=== PATIENT | male | born 1985 | race Caucasian/White ===

== ENCOUNTER 2016-07-30 17:04 | Emergency (ER) | payer MEDICAID ==
[~2016-07-30] VITALS: Ht 190.5 cm; Wt 83.9 kg
[2016-07-30 17:04] VITALS: BP_SYST 110
--- NOTE | 2016-07-30 17:04 | NUR ---
Placed on quality assurance monitor final, blood pressure machine and pulse oximeter. To gown for exam. Side rails up.
--- NOTE | 2016-07-30 17:04 | NUR ---
BIB ALS,per pt's mom,he had witness tonic clonic seizure last 5 mins became post ictal and combative. upon arrival to ED, pt awake,alert, oriented x4. cooperative.,no apparent distress noted.
--- NOTE | 2016-07-30 17:04 | NUR ---
Seizure precautions in place. Seizure pads applied to gurney. Side rails up.
--- NOTE | 2016-07-30 17:04 | NUR ---
Seizure precautions in place. Seizure pads applied to gurney. Side rails up.
--- NOTE | 2016-07-30 17:04 | NUR ---
Patient to ER bed 1 to gown for evaluation. Side rails up. Report given to TALIA FLANAGAN.
--- NOTE | 2016-07-30 17:09 | NUR ---
ER at bedside examining patient.
[2016-07-30] MEDS ORDERED: NACL 0.9% 1,000 ML IV ONE ×3 (17:15→18:00)
[2016-07-30] MEDS ORDERED: LORazepam 2 MG/ML VIAL (FOR ER USE) IVP ONE (17:15)
--- NOTE | 2016-07-30 17:21 | NUR ---
# 20 gauge angiocath placed to left hand . Use of asceptic technique. Opsite placed over site. Blood return noted. Blood for lab drawn from site. Flushed with 10 cc of normal saline. No evidence of infiltration noted. Patient tolerated well.
[2016-07-30 17:22] LABS: BASOPHILS # (AUTO) 0.1 K/uL (0.0-0.2); EOSINOPHILS # (AUTO) 0.4 K/uL (0.0-0.4); EOSINOPHILS % (AUTO) 3.5 % (0.0-4.0); HEMATOCRIT 40.2 % (36-54); HEMOGLOBIN 13.3 g/dL (14.0-18.0); LYMPHOCYTES # (AUTO) 2.4 K/uL (1.0-5.5); LYMPHOCYTES % (AUTO) 21.5 % (20.5-51.5); MEAN CORPUSCULAR HEMOGLOBIN 31 pg (27-31); MEAN CORPUSCULAR HGB CONC 33 % (32-36); MEAN CORPUSCULAR VOLUME 94 fL (79.0-98.0); MONOCYTES # (AUTO) 1.1 K/uL (0.0-1.0); MONOCYTES % (AUTO) 10.3 % (1.7-9.3); NEUTROPHILS # (AUTO) 7.2 K/uL (1.8-7.7); NEUTROPHILS % (AUTO) 63.7 % (40.0-70.0); PLATELET COUNT (AUTO) 330 K/uL (130-430); RED BLOOD CELL COUNT(AUTO) 4.29 MIL/uL (4.2-6.2); RED CELL DISTRIBUTION WIDTH 13.1 % (9.0-15.0); WHITE BLOOD COUNT (AUTO) 11.2 K/uL (4.8-10.8)
[2016-07-30] MEDS ORDERED: HYDROcodone/ACETAMIN 5-325 MG TAB (NORCO/ VICODIN) PO ONE ×2 (17:30→18:30)
[2016-07-30 17:39] LABS: ANION GAP 12 (5-15); CALCIUM 9.6 mg/dL (8.4-11.0); CHLORIDE 103 mmol/L (98-107); CREATININE 1.27 mg/dL (0.55-1.30); GLUCOSE 94 mg/dL (70-99); POTASSIUM 3.4 mmol/L (3.5-5.1); SODIUM SERUM 139 mmol/L (136-145); UREA NITROGEN, BLOOD 13 mg/dL (8-21)
[2016-07-30 17:42] LABS: GFR AFRICAN AMERICAN 85 mL/min (>90)
[2016-07-30 17:52] LABS: ALANINE AMINOTRANSFERASE 40 U/L (12-78); ALBUMIN 4.2 g/dL (3.4-4.8); ASPARTATE AMINOTRANSFERASE 16 U/L (10-37); TOTAL BILIRUBIN 0.3 mg/dL (0.0-1.0); TOTAL PROTEIN, SERUM 7.5 g/dL (6.4-8.3)
[2016-07-30 17:56] LABS: PHENYTOIN (DILANTIN) < 0.5 ug/mL (10.0-20.0)
[2016-07-30] MEDS ORDERED: cefTRIAXone 1 GM IVPB PREMIX 50 ML IV ONE (18:00)
--- NOTE | 2016-07-30 19:12 | NUR ---
hand off to Jean Paul MELGAR
--- NOTE | 2016-07-30 19:15 | NUR ---
Pt is resting comfortably in bed. VSS. AAOX4. Will continue to monitor via float phlebotomist. No distress noted.
[2016-07-30 19:54] LABS: BARBITURATE, URINE NEGATIVE (NEG <=200); BENZODIAZEPINE, URINE NEGATIVE (NEG <=150); CANNABINOID, URINE POSITIVE (NEG <=50); COCAINE, URINE NEGATIVE (NEG <=150); METHAMPHETAMINES SCREEN,URINE NEGATIVE (NEG <=500); OPIATE, URINE POSITIVE (NEG <=100); PHENCYCLIDINE SCREEN,URINE NEGATIVE (NEG <=25); UR TRICYCLIC ANTIDEPRESSANTS NEGATIVE (NEG <=300); URINE AMPHETAMINE NEGATIVE (NEG <=500); URINE METHADONE NEGATIVE (NEG <=200); URINE OXYCODONE SCREEN NEGATIVE (NEG <=100); URINE PROPOXYPHENE SCREEN NEGATIVE (NEG <=300)
[2016-07-30 20:01] VITALS: BP_SYST 129
--- NOTE | 2016-07-30 20:01 | NUR ---
Patient given written and verbal discharge instructions and verbalizes understanding. ER MD discussed with patient the results and treatment provided. Given copies of tests performed in ER. Patient in stable condition. ID arm band removed. IV catheter removed intact and dressing applied, no active bleeding. Patient educated on pain management and to follow up with PMD. Pain Scale 0/10. Opportunity for questions provided and answered.
== END 2016-07-30 20:01 | disposition home or self-care (01) ==
LOC: SED 17:04
DX: R56.9 Unspecified convulsions (principal); E87.2 Acidosis
CPT/HCPCS: 36415; 80053; 80185; 80307; 83605; 83735; 85025; 87040; 93005; 96360; 96361; 96365; 96375; 99285; J0696; J2060; J7030

== ENCOUNTER 2016-07-31 10:06 | Emergency (ER) | payer MEDICAID ==
[~2016-07-31] VITALS: Ht 193 cm; Wt 83.9 kg
[2016-07-31 10:09] VITALS: BP 149/83; PULSE 83; RESP 16; TEMP 97.9; O2SAT 98
--- NOTE | 2016-07-31 10:10 | NUR ---
Pt placed to ER bed 08. Pt seen yesterday for seizure. Pt here with c/o headache and Left hip pain and wants RX for pain medication. No seizure activity noted, no focal neurodeficits noted.
[2016-07-31] MEDS ORDERED: HYDROcodone/ACETAMIN 10-325 MG TAB PO ONE (10:15)
--- NOTE | 2016-07-31 10:15 | NUR ---
Dr. Suh at bedside to assess pt.
[2016-07-31 11:25] VITALS: BP 127/81; PULSE 78; RESP 15; TEMP 98.4; O2SAT 99
--- NOTE | 2016-07-31 11:25 | NUR ---
Patient given written and verbal discharge instructions and verbalizes understanding. ER MD dr. mario discussed with patient the results and treatment provided. Patient in stable condition. ID arm band removed. no Rx given. Patient educated on pain management and to follow up with PMD. Pain Scale 3/10 states he still needs his pain medication once his mother comes here to get him, pt. waiting in the waiting area, will be given narcotic once mother is here to product picker the pt. Opportunity for questions provided and answered.
--- NOTE | 2016-07-31 11:33 | NUR ---
Patient's mother is at bedside. Patient will be medicated and discharged at this time.
--- NOTE | 2016-07-31 11:35 | NUR ---
MOTHER AT CHAIRSIDE. PT. WAS GIVEN NORCO 1 TAB, PT. LEFT ACCOMPANIED BY HIS MOTHER
== END 2016-07-31 11:25 | disposition home or self-care (01) ==
LOC: SED 10:06
DX: G89.4 Chronic pain syndrome (principal); G40.909 Epilepsy, unspecified, not intractable, without status epilepticus
CPT/HCPCS: 99282

== ENCOUNTER 2016-08-30 10:57 | Emergency (ER) | payer MEDICAID ==
[~2016-08-30] VITALS: Ht 188 cm; Wt 77.1 kg
[2016-08-30 10:57] VITALS: BP 130/110; PULSE 77; RESP 19; TEMP 97.3; O2SAT 99
--- NOTE | 2016-08-30 11:00 | NUR ---
BROUGHT BACK TO BED #1 AND TRIAGED. REPORT GIVEN TO BEBO
--- NOTE | 2016-08-30 11:07 | NUR ---
DR SOTO AT BEDSIDE FOR EVALUATION
--- NOTE | 2016-08-30 11:10 | NUR ---
Pt presents to ED c/o numbness to part of L palm and bilateral feet with of Seizure. No acute distress noted at this time.
[2016-08-30] MEDS ORDERED: IBUPROFEN 600 MG TABLET PO ONE (11:15)
[2016-08-30 11:24] LABS: BASOPHILS # (AUTO) 0.1 K/uL (0.0-0.2); BASOPHILS % (AUTO) 1.2 % (0.0-2.0); EOSINOPHILS # (AUTO) 0.4 K/uL (0.0-0.4); HEMATOCRIT 40.6 % (36-54); HEMOGLOBIN 13.7 g/dL (14.0-18.0); LYMPHOCYTES # (AUTO) 2.9 K/uL (1.0-5.5); LYMPHOCYTES % (AUTO) 32.3 % (20.5-51.5); MEAN CORPUSCULAR HEMOGLOBIN 31 pg (27-31); MEAN CORPUSCULAR HGB CONC 34 % (32-36); MEAN CORPUSCULAR VOLUME 93 fL (79.0-98.0); MONOCYTES # (AUTO) 0.9 K/uL (0.0-1.0); MONOCYTES % (AUTO) 10.4 % (1.7-9.3); NEUTROPHILS # (AUTO) 4.6 K/uL (1.8-7.7); NEUTROPHILS % (AUTO) 52.1 % (40.0-70.0); PLATELET COUNT (AUTO) 340 K/uL (130-430); RED BLOOD CELL COUNT(AUTO) 4.37 MIL/uL (4.2-6.2); RED CELL DISTRIBUTION WIDTH 12.9 % (9.0-15.0); WHITE BLOOD COUNT (AUTO) 8.9 K/uL (4.8-10.8)
--- NOTE | 2016-08-30 11:30 | NUR ---
Pt medicated tolerated well.
[2016-08-30 11:33] LABS: CALCIUM 9.5 mg/dL (8.4-11.0); CREATININE 0.98 mg/dL (0.55-1.30); POTASSIUM 4.5 mmol/L (3.5-5.1)
[2016-08-30 11:59] LABS: PROTHROMBIN TIME 10.5 SECS (9.5-12.5)
[2016-08-30 12:56] VITALS: BP 128/90; PULSE 78; RESP 20; TEMP 97.3; O2SAT 99
--- NOTE | 2016-08-30 12:56 | NUR ---
Patient given written and verbal discharge instructions and verbalizes understanding. ER MD discussed with patient the results and treatment provided. Given copies of tests performed in ER. Patient in stable condition. ID arm band removed. Rx of motrin given. Patient educated on pain management and to follow up with PMD. Pain Scale 2. Opportunity for questions provided and answered.
== END 2016-08-30 12:56 | disposition home or self-care (01) ==
LOC: SED 10:57
DX: M54.12 Radiculopathy, cervical region (principal)
CPT/HCPCS: 36415; 70450-TC; 72125-TC; 80048; 85025; 85610-TC; 85730-TC; 99285

== ENCOUNTER 2016-09-25 12:02 | Emergency (ER) | payer MEDICAID ==
[~2016-09-25] VITALS: Ht 193 cm; Wt 76.2 kg
[2016-09-25 12:13] VITALS: BP 144/100; PULSE 111; RESP 16; TEMP 98.6; O2SAT 100
--- NOTE | 2016-09-25 13:25 | NUR ---
Patient to ER bed 1 to gown for evaluation. Side rails up. Assumed care of pt.
--- NOTE | 2016-09-25 13:27 | NUR ---
Patient C/O bilat wrist, hand pain and numbness. States that he has been evaluated for this before and wants pain medication to get him through until he is able to follow with primary care. Patient has bilateral wrist abrasions which are dark red without surrounding redness.
--- NOTE | 2016-09-25 13:30 | NUR ---
ER Dr. Suh at bedside examining patient.
[2016-09-25] MEDS ORDERED: NACL 0.9% 1,000 ML IV ONE (13:45)
[2016-09-25] MEDS ORDERED: ONDANSETRON HCL 4 MG/2 ML VIAL IVP ONE (13:45)
[2016-09-25] MEDS ORDERED: DEXAMETHASONE SOD PHOSPHATE 10 MG/ML VIAL IVP ONE (13:45)
[2016-09-25] MEDS ORDERED: KETOROLAC TROMETHAMINE 30 MG VIAL IVP ONE (13:45)
[2016-09-25 15:05] VITALS: BP 126/76; PULSE 88; RESP 20; TEMP 97.6; O2SAT 97
--- NOTE | 2016-09-25 15:06 | NUR ---
Patient given written and verbal discharge instructions and verbalizes understanding. ER MD discussed with patient the results and treatment provided. Patient in stable condition. ID arm band removed. IV catheter removed intact and dressing applied, no active bleeding. Rx of Zofran 8 mg given. Patient educated on pain management and to follow up with PMD. Pain Scale 2/10, tolerable. Opportunity for questions provided and answered.
== END 2016-09-25 15:05 | disposition home or self-care (01) ==
LOC: SED 12:02
DX: M25.532 Pain in left wrist (principal); M25.531 Pain in right wrist; R11.0 Nausea
CPT/HCPCS: 73110; 96361; 96374; 96375; 99284; J1100; J1885; J2405; J7030

== ENCOUNTER 2016-10-06 15:00 | Emergency (ER) | payer MEDICAID ==
[~2016-10-06] VITALS: Ht 190.5 cm; Wt 83.9 kg
[2016-10-06 15:08] VITALS: BP_SYST 129
[2016-10-06] MEDS ORDERED: ACETAMINOPHEN 500 MG TABLET PO ONE (16:00)
[2016-10-06] MEDS ORDERED: BACITRACIN 1 GM OINT TP ONE (16:00)
[2016-10-06 16:15] VITALS: BP_SYST 121
== END 2016-10-06 16:15 | disposition home or self-care (01) ==
LOC: SED 15:00
DX: S90.812A Abrasion, left foot, initial encounter (principal); S90.811A Abrasion, right foot, initial encounter; S60.812A Abrasion of left wrist, initial encounter; S60.811A Abrasion of right wrist, initial encounter; S00.91XA Abrasion of unspecified part of head, initial encounter; X58.XXXA Exposure to other specified factors, initial encounter; Y93.89 Activity, other specified; Y92.89 Other specified places as the place of occurrence of the external cause; Y99.8 Other external cause status
CPT/HCPCS: 99283

== ENCOUNTER 2016-10-09 08:26 | Inpatient (IN) | payer MEDICAID ==
[~2016-10-09] VITALS: Ht 193 cm; Wt 83.5 kg
[2016-10-09] VITALS (8 sets, daily range): BP systolic 100–134; BP diastolic 60–76; PULSE 75–99; RESP 11–21; TEMP 98.5–99.4; O2SAT 94–99
[2016-10-09] MEDS ORDERED: LORazepam 2 MG/ML VIAL (FOR ER USE) IVP ONE ×2 (08:30→08:45)
--- NOTE | 2016-10-09 08:30 | NUR ---
Pt BIB [facility], placed to ER bed 02, seizure precautions in place, pt on monitor. Pt experienced an unwitnessed seizure, found by family member wandering around in kitchen this AM. Pt ambulatory on scene. Pt currently AAOx4, no respiratory distress, no oral trauma. Pt has scabs to bilat feet from previous seizure. Pt report given to TALIA Arrieta.
--- NOTE | 2016-10-09 08:32 | NUR ---
Dr. Suh at bedside to assess pt.
--- NOTE | 2016-10-09 08:35 | NUR ---
Pt experiencing tonic-clonic seizure. Dr. Suh aware, Ativan to be administered.
--- NOTE | 2016-10-09 08:45 | NUR ---
Pt thrashing about in bed, pulling off medical equiptment. Soft wrist restraints applied to Bilat wrists. Good cap refill to fingers.
[2016-10-09 08:51] LABS: BASOPHILS # (AUTO) 0.2 K/uL (0.0-0.2); BASOPHILS % (AUTO) 0.9 % (0.0-2.0); EOSINOPHILS # (AUTO) 0.8 K/uL (0.0-0.4); EOSINOPHILS % (AUTO) 4.7 % (0.0-4.0); HEMATOCRIT 42.7 % (36-54); HEMOGLOBIN 13.7 g/dL (14.0-18.0); LYMPHOCYTES # (AUTO) 6.4 K/uL (1.0-5.5); MEAN CORPUSCULAR HEMOGLOBIN 31 pg (27-31); MEAN CORPUSCULAR HGB CONC 32 % (32-36); MEAN CORPUSCULAR VOLUME 96 fL (79.0-98.0); MONOCYTES # (AUTO) 1.9 K/uL (0.0-1.0); NEUTROPHILS # (AUTO) 8.1 K/uL (1.8-7.7); PLATELET COUNT (AUTO) 509 K/uL (130-430); RED BLOOD CELL COUNT(AUTO) 4.46 MIL/uL (4.2-6.2); RED CELL DISTRIBUTION WIDTH 13.1 % (9.0-15.0); WHITE BLOOD COUNT (AUTO) 17.4 K/uL (4.8-10.8)
[2016-10-09 08:57] LABS: CALCIUM 9.6 mg/dL (8.4-11.0); CREATININE 1.33 mg/dL (0.55-1.30); POTASSIUM 3.4 mmol/L (3.5-5.1)
[2016-10-09] MEDS ORDERED: KETAMINE HCL 500 MG/10 ML VIAL IVP ONE ×4 (09:00→09:15)
[2016-10-09 09:02] LABS: ALBUMIN 4.3 g/dL (3.4-4.8); TOTAL BILIRUBIN 0.4 mg/dL (0.0-1.0); TOTAL PROTEIN, SERUM 7.9 g/dL (6.4-8.3)
[2016-10-09 09:20] LABS: BILIRUBIN,URINE NEGATIVE (NEGATIVE); BLOOD, URINE 2+ (NEGATIVE); CLARITY/URINE CLEAR (CLEAR); COLOR,URINE YELLOW (YELLOW); GLUCOSE,URINE NEGATIVE (NEGATIVE); KETONES,URINE NEGATIVE (NEGATIVE); LEUKOCYTE ESTERASE ,URINE NEGATIVE (NEGATIVE); NITRITE, URINE NEGATIVE (NEGATIVE); PROTEIN URINE TRACE (NEGATIVE); UROBILINOGEN,URINE 0.2 (0.2-1.0)
--- NOTE | 2016-10-09 09:32 | NUR ---
Kristen rollins in [facility] - 10/09/16 at 1040 by KATHRINE PATIENT IS LETHARGIC;STABLE VITAL SIGNS
--- NOTE | 2016-10-09 09:32 | NUR ---
PATIENT ASLEEP;BREATHING EVEN AND UNLABORED.NO ACUTE DISTRESS.VITAL SIGNS STABLE.WILL CONTINUE TO MONITOR
[2016-10-09 09:38] LABS: BACTERIA,URINE FEW /HPF (None Seen); MUCUS,URINE 1+ /LPF (None Seen); RBC,URINE 0-3 /HPF (0-3); WBC,URINE 0-3 /HPF (0-3)
[2016-10-09 09:40] LABS: BARBITURATE, URINE NEGATIVE (NEG <=200); BENZODIAZEPINE, URINE NEGATIVE (NEG <=150); CANNABINOID, URINE POSITIVE (NEG <=50); COCAINE, URINE NEGATIVE (NEG <=150); METHAMPHETAMINES SCREEN,URINE NEGATIVE (NEG <=500); OPIATE, URINE POSITIVE (NEG <=100); PHENCYCLIDINE SCREEN,URINE NEGATIVE (NEG <=25); URINE AMPHETAMINE NEGATIVE (NEG <=500); URINE METHADONE NEGATIVE (NEG <=200)
[2016-10-09 09:41] LABS: UR TRICYCLIC ANTIDEPRESSANTS NEGATIVE (NEG <=300); URINE OXYCODONE SCREEN NEGATIVE (NEG <=100); URINE PROPOXYPHENE SCREEN NEGATIVE (NEG <=300)
[2016-10-09 10:20] LABS: NEUTROPHILS % (AUTO) 46.4 % (40.0-70.0)
[2016-10-09] MEDS ORDERED: levETIRAcetam 1,000 MG in NS 100 ML IV ONE (10:45)
--- NOTE | 2016-10-09 10:46 | NUR ---
Dr. Suh spoke with Dr. Leonard verbal order to admit given. Patient will be admitted to care of Dr. Leonard. Admitted to ICU unit.
[2016-10-09] MEDS ORDERED: D5/0.45 NS 1,000 ML IV SCH (10:56)
[2016-10-09] MEDS ORDERED: LORazepam 2 MG/ML VIAL IVP PRN ×2 (11:00→11:15)
--- NOTE | 2016-10-09 11:00 | NUR ---
PATIENT TRANSFERRED TO ICU FOR CLOSE MONITORING.ALERT,AWAKE,ORIENTED;CALM AND RELAX.BREATHING EVEN AND UNLABORED WITH O2 AT 2L/M VIA NASAL CANNULA.NO ACUTE DISTRESS.STABLE.REPORT GIVEN TO ARIANA MELGAR
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
--- NOTE | 2016-10-09 11:45 | NUR ---
consult for dr. bermudez called spoke to consuelo dialed [phone]
--- NOTE | 2016-10-09 12:30 | NUR ---
DR. MINNIE HARTMAN INTERVIEWED, EXAMINED AND GAVE NEW ORDERS.
--- NOTE | 2016-10-09 13:15 | NUR ---
SLEEPING SLEEPING, NO SIGN OF SEIZURE ACTIVITY.
[2016-10-09] MEDS ORDERED: LAMO200T2 PO (13:16)
[2016-10-09] MEDS ORDERED: ONDA8TAB60 PO (13:16)
[2016-10-09] MEDS ORDERED: HYDR-3608 PO (13:16)
[2016-10-09] MEDS ORDERED: DOXY-4 PO (13:16)
[2016-10-09] MEDS ORDERED: MELO15TA13 PO (13:16)
[2016-10-09] MEDS ORDERED: IBUP-1480 PO (13:16)
[2016-10-09] MEDS ORDERED: BACITRACIN/POLYMYXIN B SULFATE 30 GM TOPICAL OINT. TP SCH (13:30)
[2016-10-09] MEDS ORDERED: LamoTRIgine 100 MG TABLET PO ONE (14:30)
[2016-10-09] MEDS ORDERED: levETIRAcetam 500 MG TABLET PO ONE ×2 (14:30→21:00)
[2016-10-09] MEDS ORDERED: LACOSAMIDE 100 MG TABLET PO ONE (14:30)
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
--- NOTE | 2016-10-09 15:40 | NUR ---
DR. GREG JAIMES.
--- NOTE | 2016-10-09 16:00 | NUR ---
DR. GARZA, DR. GARZA RETURNED HER PAGE - DR. GARZA WAS INFORMED THAT PT WANTS TO LEAVE THE HOSPITAL TODAY SOON POSSIBLE. DR. GARZA STATES THAT MR. UMANA WOULD HAVE TO SIGN HIMSELF OUT AGAINST MEDICAL ADVICE. 1610 DR. HARTMAN WAS NOTIFIED THAT PT WANTS TO SIGN OUT OF THE HOSPITAL AGAINST MEDICAL ADVICE.
--- NOTE | 2016-10-09 16:30 | NUR ---
WOUNDS BACITRACIN OINTMENT APPLIED TO ABRASION RIGHT KNEE, NON-ADHERING DRESSING APPLIED. DRESSING CHANGED TO LEFT GREAT TOE, GAUZE DRESSING APPLIED W UMANG WRAP.
--- NOTE | 2016-10-09 18:00 | NUR ---
ARRANGED FOR TRANSPORTATION ARRANGED FOR OWN TRANSPORTATION VIA "[facility]". STATES WILL BE HERE IN 10 MIN. IV REMOVED. AMBULATED TO LOBBY TO WAIT FOR THE RIDE. ARM BANDS/HOSP ID REMOVED. STATES WILL SEE NEUROLOGIST ON OCTOBER 12.
[2016-10-09] MEDS ORDERED: LamoTRIgine 100 MG TABLET PO SCH (21:00)
[2016-10-09] MEDS ORDERED: LACOSAMIDE 100 MG TABLET PO SCH (21:00)
== END 2016-10-09 18:06 | disposition left against medical advice (07) | DRG 53 ==
LOC: SED 08:26 → SIC 10:44
DX: G40.409 Other generalized epilepsy and epileptic syndromes, not intractable, without status epilepticus (principal); Z78.1 Physical restraint status; G89.4 Chronic pain syndrome; Z53.21 Procedure and treatment not carried out due to patient leaving prior to being seen by health care provider; F12.90 Cannabis use, unspecified, uncomplicated; Z90.81 Acquired absence of spleen; Z90.49 Acquired absence of other specified parts of digestive tract
CPT/HCPCS: 36415; 80053; 80307; 81000-TC; 83735-TC; 85025; 93005; 96374; 96375; 99291; J1953; J2060

== ENCOUNTER 2016-12-13 14:43 | Emergency (ER) | payer MEDICAID ==
[~2016-12-13] VITALS: Ht 190.5 cm; Wt 86.2 kg
[~2016-12-13 14:43] MED LIST: DOXY-4 PO; HYDR-3608 PO; IBUP-1480 PO; LAMO200T2 PO; MELO15TA13 PO; ONDA8TAB60 PO
[2016-12-13 14:48] VITALS: BP_SYST 121
[2016-12-13 15:41] LABS: BASOPHILS # (AUTO) 0.1 K/uL (0.0-0.2); BASOPHILS % (AUTO) 0.9 % (0.0-2.0); EOSINOPHILS % (AUTO) 0.2 % (0.0-4.0); HEMATOCRIT 45.2 % (36-54); HEMOGLOBIN 14.6 g/dL (14.0-18.0); MEAN CORPUSCULAR HEMOGLOBIN 30 pg (27-31); MEAN CORPUSCULAR HGB CONC 32 % (32-36); MEAN CORPUSCULAR VOLUME 93 fL (79.0-98.0); MONOCYTES # (AUTO) 1.1 K/uL (0.0-1.0); MONOCYTES % (AUTO) 10.9 % (1.7-9.3); NEUTROPHILS # (AUTO) 7.8 K/uL (1.8-7.7); PLATELET COUNT (AUTO) 360 K/uL (130-430); RED BLOOD CELL COUNT(AUTO) 4.84 MIL/uL (4.2-6.2); RED CELL DISTRIBUTION WIDTH 13.1 % (9.0-15.0)
[2016-12-13 15:50] LABS: CALCIUM 9.3 mg/dL (8.4-11.0); CREATININE 1.22 mg/dL (0.55-1.30); POTASSIUM 3.7 mmol/L (3.5-5.1)
[2016-12-13 15:54] LABS: ALBUMIN 4.5 g/dL (3.4-4.8); TOTAL BILIRUBIN 0.3 mg/dL (0.0-1.0); TOTAL PROTEIN, SERUM 8.3 g/dL (6.4-8.3)
[2016-12-13 16:37] LABS: BILIRUBIN,URINE NEGATIVE (NEGATIVE); BLOOD, URINE NEGATIVE (NEGATIVE); CLARITY/URINE CLEAR (CLEAR); COLOR,URINE YELLOW (YELLOW); GLUCOSE,URINE NEGATIVE (NEGATIVE); KETONES,URINE 1+ (NEGATIVE); LEUKOCYTE ESTERASE ,URINE NEGATIVE (NEGATIVE); NITRITE, URINE NEGATIVE (NEGATIVE); PH,URINE 8.5 (5.0-8.0); PROTEIN URINE 2+ (NEGATIVE); UROBILINOGEN,URINE 0.2 (0.2-1.0)
[2016-12-13] MEDS ORDERED: PENICILLIN G BENZATHINE 1.2 MMU/2 ML SYR IM ONE (16:45)
[2016-12-13] MEDS ORDERED: PREDNISONE 20 MG TABLET PO ONE (16:45)
[2016-12-13] MEDS ORDERED: IBUPROFEN 800 MG TABLET PO ONE (17:00)
[2016-12-13 17:17] LABS: BACTERIA,URINE FEW /HPF (None Seen); RBC,URINE 0-3 /HPF (0-3); WBC,URINE 0-3 /HPF (0-3)
[2016-12-13 17:18] LABS: MUCUS,URINE None Seen /LPF (None Seen)
[2016-12-13 17:45] VITALS: BP_SYST 121
== END 2016-12-13 17:45 | disposition home or self-care (01) ==
LOC: SED 14:43
DX: J02.9 Acute pharyngitis, unspecified (principal); Z90.89 Acquired absence of other organs; Z79.899 Other long term (current) drug therapy; Z90.49 Acquired absence of other specified parts of digestive tract
CPT/HCPCS: 36415; 80053; 81000; 83690; 85025; 96372; 99284; J0561; J7512

== ENCOUNTER 2017-01-19 10:08 | Emergency (ER) | payer MEDICAID ==
[~2017-01-19] VITALS: Ht 182.9 cm; Wt 77.1 kg
[2017-01-19 10:10] VITALS: BP_SYST 131
[2017-01-19] MEDS ORDERED: KETAMINE HCL 500 MG/10 ML VIAL ONE (10:24)
[2017-01-19] MEDS ORDERED: [UNRECOGNIZED DRUG - CODE] PO (10:30)
[2017-01-19] MEDS ORDERED: LAM25 PO (10:30)
[2017-01-19] MEDS ORDERED: PRED10TA PO (10:30)
[2017-01-19] MEDS ORDERED: GABA-531 PO (10:30)
[2017-01-19] MEDS ORDERED: HYDR-4100 PO (10:30)
[2017-01-19] MEDS ORDERED: BACL10TA PO (10:30)
[2017-01-19] MEDS ORDERED: ONDA4TAB22 PO (10:30)
[2017-01-19] MEDS ORDERED: LORazepam 2 MG/ML VIAL (FOR ER USE) ONE (10:34)
[2017-01-19] MEDS: ED NON STOCK ORDER 1 EA MISC IV ONE (11:00)
[2017-01-19 11:06] LABS: BASOPHILS # (AUTO) 0.1 K/uL (0.0-0.2); BASOPHILS % (AUTO) 1.1 % (0.0-2.0); EOSINOPHILS # (AUTO) 0.4 K/uL (0.0-0.4); EOSINOPHILS % (AUTO) 4.1 % (0.0-4.0); HEMATOCRIT 44.5 % (36-54); HEMOGLOBIN 14.3 g/dL (14.0-18.0); LYMPHOCYTES # (AUTO) 2.7 K/uL (1.0-5.5); LYMPHOCYTES % (AUTO) 25.4 % (20.5-51.5); MEAN CORPUSCULAR HEMOGLOBIN 30 pg (27-31); MEAN CORPUSCULAR HGB CONC 32 % (32-36); MEAN CORPUSCULAR VOLUME 94 fL (79.0-98.0); MONOCYTES # (AUTO) 0.7 K/uL (0.0-1.0); MONOCYTES % (AUTO) 6.6 % (1.7-9.3); NEUTROPHILS # (AUTO) 6.7 K/uL (1.8-7.7); NEUTROPHILS % (AUTO) 62.8 % (40.0-70.0); RED BLOOD CELL COUNT(AUTO) 4.73 MIL/uL (4.2-6.2); RED CELL DISTRIBUTION WIDTH 13.3 % (9.0-15.0); WHITE BLOOD COUNT (AUTO) 10.6 K/uL (4.8-10.8)
[2017-01-19] MEDS: LORazepam 2 MG/ML VIAL (FOR ER USE) IVP ONE (11:18)
[2017-01-19 11:21] LABS: INR 0.9 (0.80-1.20); PROTHROMBIN TIME 9.7 SECS (9.5-12.5)
[2017-01-19] MEDS ORDERED: HYDROCO/APAP TAB 10-325MG (11:22)
[2017-01-19] MEDS ORDERED: ONDANSETRON TAB 4MG ODT (11:22)
[2017-01-19] MEDS ORDERED: LAMOTRIGINE 25 MG (11:22)
[2017-01-19] MEDS: KETAMINE HCL 500 MG/10 ML VIAL IVP ONE ×2 (11:24→11:30)
[2017-01-19 11:26] LABS: CALCIUM 9.8 mg/dL (8.4-11.0); CREATININE 1.39 mg/dL (0.55-1.30); POTASSIUM 3.4 mmol/L (3.5-5.1)
[2017-01-19 11:29] LABS: BILIRUBIN,URINE NEGATIVE (NEGATIVE); BLOOD, URINE TRACE (NEGATIVE); CLARITY/URINE SL HAZY (CLEAR); COLOR,URINE YELLOW (YELLOW); GLUCOSE,URINE NEGATIVE (NEGATIVE); KETONES,URINE NEGATIVE (NEGATIVE); LEUKOCYTE ESTERASE ,URINE NEGATIVE (NEGATIVE); NITRITE, URINE NEGATIVE (NEGATIVE); PH,URINE 5.5 (5.0-8.0); PROTEIN URINE TRACE (NEGATIVE); UROBILINOGEN,URINE 0.2 (0.2-1.0)
[2017-01-19 11:31] LABS: ALBUMIN 4.5 g/dL (3.4-4.8); TOTAL BILIRUBIN 0.5 mg/dL (0.0-1.0)
[2017-01-19 11:32] LABS: PLATELET COUNT (AUTO) 368 K/uL (130-430)
[2017-01-19 11:35] LABS: BACTERIA,URINE RARE /HPF (None Seen); RBC,URINE 0-3 /HPF (0-3); WBC,URINE 0-3 /HPF (0-3)
[2017-01-19 11:51] LABS: BARBITURATE, URINE NEGATIVE (NEG <=200); BENZODIAZEPINE, URINE NEGATIVE (NEG <=150); CANNABINOID, URINE POSITIVE (NEG <=50); COCAINE, URINE NEGATIVE (NEG <=150); METHAMPHETAMINES SCREEN,URINE NEGATIVE (NEG <=500); OPIATE, URINE NEGATIVE (NEG <=100); PHENCYCLIDINE SCREEN,URINE NEGATIVE (NEG <=25); UR TRICYCLIC ANTIDEPRESSANTS NEGATIVE (NEG <=300); URINE AMPHETAMINE NEGATIVE (NEG <=500); URINE METHADONE NEGATIVE (NEG <=200); URINE OXYCODONE SCREEN NEGATIVE (NEG <=100); URINE PROPOXYPHENE SCREEN NEGATIVE (NEG <=300)
[2017-01-19] MEDS: HYDROcodone/ACETAMIN 10-325 MG TAB PO ONE (13:45)
[2017-01-19] MEDS: LamoTRIgine 100 MG TABLET PO ONE (13:48)
[2017-01-19 15:51] VITALS: BP_SYST 110
== END 2017-01-19 15:51 | disposition home or self-care (01) ==
LOC: SED 10:08
DX: R56.9 Unspecified convulsions (principal); Z79.899 Other long term (current) drug therapy
CPT/HCPCS: 36415; 51702; 70450; 71010; 80053; 80307; 81000; 82140; 82550; 83880; 84484; 85025; 85610; 85730; 87040; 93005; 96374; 96375; 96376; 99291; J2060

== ENCOUNTER 2017-11-28 12:38 | Emergency (ER) | payer MEDICAID ==
[~2017-11-28] VITALS: Ht 188 cm; Wt 86.2 kg
[~2017-11-28 12:38] MED LIST changes: -DOXY-4 PO; -HYDR-3608 PO; +HYDR-4100 PO; +LAM25 PO; -MELO15TA13 PO; +ONDA4TAB22 PO; -ONDA8TAB60 PO
[2017-11-28 12:50] VITALS: BP_SYST 126
[2017-11-28] MEDS ORDERED: ONDANSETRON 4 MG ODT TAB PO ONE (13:00)
[2017-11-28] MEDS ORDERED: NACL 0.9% 1,000 ML IV ONE (13:15)
[2017-11-28] MEDS ORDERED: MORPHINE 4 MG/ML INJ. SYRINGE IVP ONE (13:15)
[2017-11-28 14:21] VITALS: BP_SYST 118
== END 2017-11-28 14:20 | disposition home or self-care (01) ==
LOC: SED 12:38
DX: S09.90XA Unspecified injury of head, initial encounter (principal); R56.9 Unspecified convulsions; R11.2 Nausea with vomiting, unspecified; R03.0 Elevated blood-pressure reading, without diagnosis of hypertension; Z79.899 Other long term (current) drug therapy; Z90.49 Acquired absence of other specified parts of digestive tract; W22.01XA Walked into wall, initial encounter; Y93.89 Activity, other specified; Y92.89 Other specified places as the place of occurrence of the external cause; Y99.8 Other external cause status
CPT/HCPCS: 70450; 96361; 96374; 99284; J2270; J7030; Q0162

== ENCOUNTER 2018-01-08 01:18 | Emergency (ER) | payer MEDICAID ==
[~2018-01-08] VITALS: Ht 193 cm; Wt 86.2 kg
[~2018-01-08 01:18] MED LIST changes: -IBUP-1480 PO; +IBUP-1971 PO
[2018-01-08 01:34] VITALS: BP_SYST 119
[2018-01-08] MEDS ORDERED: IBUPROFEN 800 MG TABLET PO ONE (02:45)
[2018-01-08 03:11] VITALS: BP_SYST 117
== END 2018-01-08 03:11 | disposition home or self-care (01) ==
LOC: SED 01:18
DX: S60.221A Contusion of right hand, initial encounter (principal); S05.11XA Contusion of eyeball and orbital tissues, right eye, initial encounter; S80.212A Abrasion, left knee, initial encounter; Y04.0XXA Assault by unarmed brawl or fight, initial encounter; Y93.89 Activity, other specified; Y92.89 Other specified places as the place of occurrence of the external cause; Y99.8 Other external cause status
CPT/HCPCS: 70480; 99284

== ENCOUNTER 2018-01-16 21:46 | Emergency (ER) | payer MEDICAID ==
[~2018-01-16] VITALS: Ht 193 cm; Wt 86.2 kg
[2018-01-16 21:54] VITALS: BP_SYST 120
== END 2018-01-16 23:16 | disposition left against medical advice (07) ==
LOC: SED 21:46
DX: R42 Dizziness and giddiness (principal); R41.0 Disorientation, unspecified; R56.9 Unspecified convulsions; R11.0 Nausea; M79.1 Myalgia; Z53.21 Procedure and treatment not carried out due to patient leaving prior to being seen by health care provider

== ENCOUNTER 2018-03-12 00:57 | Emergency (ER) | payer MEDICAID ==
[~2018-03-12] VITALS: Ht 193 cm; Wt 86.2 kg
[2018-03-12 00:57] VITALS: BP_SYST 132
[2018-03-12] MEDS ORDERED: MORPHINE 4 MG/ML INJ. SYRINGE IVP ONE (01:15)
[2018-03-12 01:27] LABS: BILIRUBIN,URINE NEGATIVE (NEGATIVE); CLARITY/URINE CLEAR (CLEAR); COLOR,URINE YELLOW (YELLOW); GLUCOSE,URINE NEGATIVE (NEGATIVE); KETONES,URINE NEGATIVE (NEGATIVE); LEUKOCYTE ESTERASE ,URINE NEGATIVE (NEGATIVE); NITRITE, URINE NEGATIVE (NEGATIVE); PH,URINE 5.5 (5.0-8.0); PROTEIN URINE TRACE (NEGATIVE); UROBILINOGEN,URINE 0.2 (0.2-1.0)
[2018-03-12 01:32] LABS: BLOOD, URINE TRACE (NEGATIVE)
[2018-03-12] MEDS ORDERED: LACO100T2 PO (01:33)
[2018-03-12 01:40] LABS: BARBITURATE, URINE NEGATIVE (NEG <=200); BENZODIAZEPINE, URINE NEGATIVE (NEG <=150); CANNABINOID, URINE NEGATIVE (NEG <=50); COCAINE, URINE NEGATIVE (NEG <=150); METHAMPHETAMINES SCREEN,URINE NEGATIVE (NEG <=500); OPIATE, URINE NEGATIVE (NEG <=100); PHENCYCLIDINE SCREEN,URINE NEGATIVE (NEG <=25); UR TRICYCLIC ANTIDEPRESSANTS NEGATIVE (NEG <=300); URINE AMPHETAMINE NEGATIVE (NEG <=500); URINE METHADONE NEGATIVE (NEG <=200); URINE OXYCODONE SCREEN NEGATIVE (NEG <=100); URINE PROPOXYPHENE SCREEN NEGATIVE (NEG <=300)
[2018-03-12 01:40] LABS: HEMATOCRIT 40.5 % (36-54); HEMOGLOBIN 13.5 g/dL (14.0-18.0); MEAN CORPUSCULAR HEMOGLOBIN 31 pg (27-31); MEAN CORPUSCULAR HGB CONC 34 % (32-36); MEAN CORPUSCULAR VOLUME 93 fL (79.0-98.0); PLATELET COUNT (AUTO) 354 K/uL (130-430); RED BLOOD CELL COUNT(AUTO) 4.35 MIL/uL (4.2-6.2); RED CELL DISTRIBUTION WIDTH 13.2 % (9.0-15.0); WHITE BLOOD COUNT (AUTO) 12.2 K/uL (4.8-10.8)
[2018-03-12 02:04] LABS: ANION GAP 15 (5-15); CALCIUM 9.3 mg/dL (8.4-11.0); CHLORIDE 102 mmol/L (98-107); CREATININE 1.17 mg/dL (0.55-1.30); GLUCOSE 78 mg/dL (70-99); POTASSIUM 3.6 mmol/L (3.5-5.1); SODIUM SERUM 140 mmol/L (136-145); UREA NITROGEN, BLOOD 22 mg/dL (8-21)
[2018-03-12 02:05] LABS: GFR AFRICAN AMERICAN 92 mL/min (>90)
[2018-03-12 02:12] LABS: BACTERIA,URINE RARE /HPF (None Seen); MUCUS,URINE None Seen /LPF (None Seen); WBC,URINE 0-3 /HPF (0-3); YEAST,URINE None Seen /HPF (None Seen)
[2018-03-12 02:26] LABS: BASOPHILS % (MANUAL) 0 % (0-2); EOSINOPHILS % (MANUAL) 6 % (0-7); LYMPHOCYTES % (MANUAL) 51 % (20-46); MONOCYTES % (MANUAL) 11 % (0-11)
[2018-03-12 02:29] LABS: ALANINE AMINOTRANSFERASE 29 U/L (12-78); ASPARTATE AMINOTRANSFERASE 21 U/L (10-37); TOTAL BILIRUBIN 0.3 mg/dL (0.0-1.0)
[2018-03-12 02:30] LABS: ALCOHOL, BLOOD < 3 mg/dL (<10)
[2018-03-12 03:02] VITALS: BP_SYST 132
== END 2018-03-12 03:02 | disposition home or self-care (01) ==
LOC: SED 00:57
DX: G40.909 Epilepsy, unspecified, not intractable, without status epilepticus (principal); Z87.891 Personal history of nicotine dependence; Z90.49 Acquired absence of other specified parts of digestive tract; Z98.890 Other specified postprocedural states; Z79.899 Other long term (current) drug therapy
CPT/HCPCS: 36415; 71045; 80053; 80307; 81000; 85007; 85027; 96374; 99285; G0482; J2270; 99284

== ENCOUNTER 2018-06-17 18:35 | Emergency (ER) | payer MEDICAID ==
[~2018-06-17] VITALS: Ht 190.5 cm; Wt 108.9 kg
[2018-06-17 18:35] VITALS: BP_SYST 147
[~2018-06-17 18:35] MED LIST changes: +LACO100T2 PO
[2018-06-17] MEDS ORDERED: LORazepam 2 MG/ML VIAL (FOR ER USE) IVP ONE (19:00)
[2018-06-17 19:01] LABS: ANION GAP 11 (5-15); CALCIUM 8.7 mg/dL (8.4-11.0); CHLORIDE 102 mmol/L (98-107); CREATININE 1.26 mg/dL (0.55-1.30); GLUCOSE 105 mg/dL (70-99); POTASSIUM 3.4 mmol/L (3.5-5.1); SODIUM SERUM 138 mmol/L (136-145); UREA NITROGEN, BLOOD 13 mg/dL (8-21)
[2018-06-17 19:02] LABS: INR 0.9 (0.80-1.20); PROTHROMBIN TIME 9.6 SECS (9.5-12.5)
[2018-06-17 19:05] LABS: GFR AFRICAN AMERICAN 84 mL/min (>90)
[2018-06-17 19:07] LABS: HEMATOCRIT 45.4 % (36-54); HEMOGLOBIN 15.5 g/dL (14.0-18.0); MEAN CORPUSCULAR HEMOGLOBIN 32 pg (27-31); MEAN CORPUSCULAR VOLUME 94 fL (79.0-98.0); RED BLOOD CELL COUNT(AUTO) 4.85 MIL/uL (4.2-6.2); WHITE BLOOD COUNT (AUTO) 13.2 K/uL (4.8-10.8)
[2018-06-17 19:08] LABS: BASOPHILS # (AUTO) 0.1 K/uL (0.0-0.2); BASOPHILS % (AUTO) 1.1 % (0.0-2.0); EOSINOPHILS # (AUTO) 0.5 K/uL (0.0-0.4); EOSINOPHILS % (AUTO) 3.8 % (0.0-4.0); LYMPHOCYTES % (AUTO) 22.5 % (20.5-51.5); MEAN CORPUSCULAR HGB CONC 34 % (32-36); MONOCYTES # (AUTO) 1.3 K/uL (0.0-1.0); MONOCYTES % (AUTO) 10.1 % (1.7-9.3); NEUTROPHILS # (AUTO) 8.3 K/uL (1.8-7.7); NEUTROPHILS % (AUTO) 62.5 % (40.0-70.0); PLATELET COUNT (AUTO) 436 K/uL (130-430); RED CELL DISTRIBUTION WIDTH 13.9 % (9.0-15.0)
[2018-06-17 19:18] LABS: ALANINE AMINOTRANSFERASE 176 U/L (12-78); ALBUMIN 3.8 g/dL (3.4-4.8); ASPARTATE AMINOTRANSFERASE 156 U/L (10-37); FREE T4 (FREE THYROXINE) 0.8 ng/dL (0.6-1.6); TOTAL BILIRUBIN 0.6 mg/dL (0.0-1.0)
[2018-06-17 19:20] LABS: ALCOHOL, BLOOD < 3 mg/dL (<10)
[2018-06-17 19:57] LABS: BILIRUBIN,URINE NEGATIVE (NEGATIVE); BLOOD, URINE NEGATIVE (NEGATIVE); CLARITY/URINE CLEAR (CLEAR); COLOR,URINE YELLOW (YELLOW); GLUCOSE,URINE NEGATIVE (NEGATIVE); KETONES,URINE NEGATIVE (NEGATIVE); LEUKOCYTE ESTERASE ,URINE NEGATIVE (NEGATIVE); NITRITE, URINE NEGATIVE (NEGATIVE); PROTEIN URINE NEGATIVE (NEGATIVE); UROBILINOGEN,URINE 0.2 (0.2-1.0)
[2018-06-17] MEDS ORDERED: MORPHINE 4 MG/ML INJ. SYRINGE IVP ONE (20:00)
[2018-06-17] MEDS ORDERED: DIPHENHYDRAMINE INJ 50 MG/ML VIAL IVP ONE (20:00)
[2018-06-17] MEDS ORDERED: ONDANSETRON HCL 4 MG/2 ML VIAL IVP ONE (20:00)
[2018-06-17 20:06] LABS: BARBITURATE, URINE NEGATIVE (NEG <=200); BENZODIAZEPINE, URINE NEGATIVE (NEG <=150); CANNABINOID, URINE POSITIVE (NEG <=50); COCAINE, URINE NEGATIVE (NEG <=150); METHAMPHETAMINES SCREEN,URINE NEGATIVE (NEG <=500); URINE AMPHETAMINE NEGATIVE (NEG <=500); URINE METHADONE NEGATIVE (NEG <=200)
[2018-06-17 20:07] LABS: OPIATE, URINE NEGATIVE (NEG <=100); PHENCYCLIDINE SCREEN,URINE NEGATIVE (NEG <=25); UR TRICYCLIC ANTIDEPRESSANTS NEGATIVE (NEG <=300); URINE OXYCODONE SCREEN POSITIVE (NEG <=100); URINE PROPOXYPHENE SCREEN NEGATIVE (NEG <=300)
[2018-06-17] MEDS ORDERED: NACL 0.9% 2,000 ML IV ONE (20:30)
[2018-06-17 23:20] VITALS: BP_SYST 114
== END 2018-06-17 23:20 | disposition home or self-care (01) ==
LOC: SED 18:35
DX: R56.9 Unspecified convulsions (principal); R03.0 Elevated blood-pressure reading, without diagnosis of hypertension; Z90.49 Acquired absence of other specified parts of digestive tract; Z79.899 Other long term (current) drug therapy
CPT/HCPCS: 36415; 71045; 80053; 80307; 81003; 82140; 83605; 83880; 84484; 84439; 85025; 85610; 87040; 93005; 96374; 96375; 99284; G0482; J1200; J2060; J2270; J2405; J7030

== ENCOUNTER 2018-08-31 15:55 | Emergency (ER) | payer MEDICAID ==
[~2018-08-31] VITALS: Ht 188 cm; Wt 99.8 kg
[2018-08-31 15:55] VITALS: BP_SYST 141
--- NOTE | 2018-08-31 15:55 | NUR ---
BROUGHT IN BY [facility], PLACED IN BED #1 AND TRIAGED. REPORT GIVEN TO KAREN
--- NOTE | 2018-08-31 15:57 | NUR ---
PT HAVING A SEIZURE, AND HER TEAM AT BEDSIDE, PADDED SIDERAIL UP FOR SAFETY, PT THEN STARTED SWINGING HIS ARMS AND LEGS TO AIR AFTER HIS SEIZURE, SPITTING OUT, TOWELS PROVIDED, ATTEMPTED TO INSERT AN IV, PT NOT LETTING IT HAPPENED, KEPT MOVING HIS ARMS.
--- NOTE | 2018-08-31 16:05 | NUR ---
IV INSERTED INTO LEFT WRIST, WITH GOOD BLOOD RETURN NOTED.
[2018-08-31] MEDS: MIDAZOLAM HCL 5 MG/5 ML VIAL IVP ONE (16:32)
[2018-08-31] MEDS ORDERED: LORazepam 2 MG/ML VIAL (FOR ER USE) ONE (16:38)
[2018-08-31 16:43] LABS: BASOPHILS # (AUTO) 0.1 K/uL (0.0-0.2); CALCIUM 9.6 mg/dL (8.4-11.0); CREATININE 1.29 mg/dL (0.55-1.30); EOSINOPHILS # (AUTO) 0.1 K/uL (0.0-0.4); EOSINOPHILS % (AUTO) 0.4 % (0.0-4.0); HEMATOCRIT 46.5 % (36-54); HEMOGLOBIN 15.2 g/dL (14.0-18.0); LYMPHOCYTES # (AUTO) 3.6 K/uL (1.0-5.5); LYMPHOCYTES % (AUTO) 26.4 % (20.5-51.5); MEAN CORPUSCULAR HEMOGLOBIN 31 pg (27-31); MEAN CORPUSCULAR HGB CONC 33 % (32-36); MEAN CORPUSCULAR VOLUME 95 fL (79.0-98.0); MONOCYTES % (AUTO) 7.1 % (1.7-9.3); NEUTROPHILS # (AUTO) 8.8 K/uL (1.8-7.7); NEUTROPHILS % (AUTO) 65.1 % (40.0-70.0); PLATELET COUNT (AUTO) 395 K/uL (130-430); POTASSIUM 3.3 mmol/L (3.5-5.1); RED BLOOD CELL COUNT(AUTO) 4.89 MIL/uL (4.2-6.2); RED CELL DISTRIBUTION WIDTH 13.8 % (9.0-15.0); WHITE BLOOD COUNT (AUTO) 13.6 K/uL (4.8-10.8)
[2018-08-31] MEDS: LORazepam 2 MG/ML VIAL (FOR ER USE) IVP ONE (16:46)
--- NOTE | 2018-08-31 16:46 | NUR ---
ATIVAN 2 MG IVP GIVEN ORDERED, PT VERBALIZED A THROBBING HEADACHE, WILL CONTINUE TO MONITOR.
[2018-08-31 16:48] LABS: ALBUMIN 4.3 g/dL (3.4-4.8); TOTAL BILIRUBIN 0.3 mg/dL (0.0-1.0)
[2018-08-31] MEDS: NACL 0.9% 1,000 ML IV ONE ×2 (16:48→16:56)
--- NOTE | 2018-08-31 17:15 | NUR ---
pt comfortable at this hour, continue to monitor.
--- NOTE | 2018-08-31 18:20 | NUR ---
pt verbalized basic needs and attended, expressed desire to go home, Dr Valente made aware.
--- NOTE | 2018-08-31 19:00 | NUR ---
Patient given written and verbal discharge instructions and verbalizes understanding. ER MD LEA discussed with patient the results and treatment provided. Patient in stable condition. ID arm band removed. IV catheter removed intact and dressing applied, no active bleeding. Patient educated on pain management and to follow up with PMD. Pain Scale 0. Opportunity for questions provided and answered. Medication side effect fact sheet provided.
== END 2018-08-31 19:00 | disposition home or self-care (01) ==
LOC: SED 15:55
DX: G40.909 Epilepsy, unspecified, not intractable, without status epilepticus (principal); R03.0 Elevated blood-pressure reading, without diagnosis of hypertension; Z79.899 Other long term (current) drug therapy
CPT/HCPCS: 36415; 80053; 85025; 96374; 96375; 99283; J2060; J2250; J7030; 93005

== ENCOUNTER 2018-10-16 15:08 | Inpatient (IN) | payer MEDICAID ==
[~2018-10-16] VITALS: Ht 188 cm; Wt 90.7 kg
[2018-10-16 15:08] VITALS: BP_SYST 132
[2018-10-16] MEDS ORDERED: LORazepam 2 MG/ML VIAL (FOR ER USE) IVP ONE (15:30)
[2018-10-16 15:37] LABS: BASOPHILS # (AUTO) 0.2 K/uL (0.0-0.2); EOSINOPHILS # (AUTO) 0.1 K/uL (0.0-0.4); EOSINOPHILS % (AUTO) 0.4 % (0.0-4.0); HEMATOCRIT 46.6 % (36-54); HEMOGLOBIN 15.2 g/dL (14.0-18.0); LYMPHOCYTES # (AUTO) 4.3 K/uL (1.0-5.5); MEAN CORPUSCULAR HEMOGLOBIN 31 pg (27-31); MEAN CORPUSCULAR HGB CONC 33 % (32-36); MEAN CORPUSCULAR VOLUME 95 fL (79.0-98.0); MONOCYTES # (AUTO) 1.3 K/uL (0.0-1.0); MONOCYTES % (AUTO) 7.2 % (1.7-9.3); NEUTROPHILS % (AUTO) 67.4 % (40.0-70.0); PLATELET COUNT (AUTO) 422 K/uL (130-430); RED BLOOD CELL COUNT(AUTO) 4.89 MIL/uL (4.2-6.2); RED CELL DISTRIBUTION WIDTH 14.7 % (9.0-15.0); WHITE BLOOD COUNT (AUTO) 17.8 K/uL (4.8-10.8)
[2018-10-16 15:52] LABS: CALCIUM 9.2 mg/dL (8.4-11.0); CREATININE 1.38 mg/dL (0.55-1.30); POTASSIUM 3.4 mmol/L (3.5-5.1)
[2018-10-16 16:04] LABS: ALBUMIN 4.2 g/dL (3.4-4.8); TOTAL BILIRUBIN 0.1 mg/dL (0.0-1.0)
[2018-10-16 16:23] LABS: BARBITURATE, URINE NEGATIVE (NEG <=200); BENZODIAZEPINE, URINE NEGATIVE (NEG <=150); CANNABINOID, URINE POSITIVE (NEG <=50); COCAINE, URINE NEGATIVE (NEG <=150); METHAMPHETAMINES SCREEN,URINE NEGATIVE (NEG <=500); OPIATE, URINE NEGATIVE (NEG <=100); PHENCYCLIDINE SCREEN,URINE NEGATIVE (NEG <=25); UR TRICYCLIC ANTIDEPRESSANTS NEGATIVE (NEG <=300); URINE AMPHETAMINE NEGATIVE (NEG <=500); URINE METHADONE NEGATIVE (NEG <=200); URINE OXYCODONE SCREEN NEGATIVE (NEG <=100); URINE PROPOXYPHENE SCREEN NEGATIVE (NEG <=300)
[2018-10-16] MEDS ORDERED: KETOROLAC TROMETHAMINE 30 MG VIAL IVP ONE (17:00)
[2018-10-16] MEDS ORDERED: ONDANSETRON HCL 4 MG/2 ML VIAL IVP PRN (17:45)
[2018-10-16] MEDS ORDERED: ALBUTEROL SULFATE 0.083% 2.5 MG/3 ML VIAL.NEB INH PRN (17:45)
[2018-10-16] MEDS ORDERED: ACETAMINOPHEN 325 MG TABLET PO PRN (17:45)
[2018-10-16] MEDS ORDERED: VITD400 PO (18:18)
[2018-10-16 18:34] VITALS: BP_SYST 116
[2018-10-16 19:00] VITALS: BP_SYST 122
[2018-10-16 19:02] VITALS: BP_SYST 129
[2018-10-16 20:00] VITALS: BP_SYST 127
[2018-10-16] MEDS ORDERED: PIPERACILLIN/TAZOBACTAM 3.375 GM/VIAL (ZOSYN) IV ONE (20:04)
[2018-10-16] MEDS: MORPHINE 2 MG/ML INJ. SYRINGE IVP PRN (20:05)
[2018-10-16] MEDS: LamoTRIgine 100 MG TABLET PO SCH (20:05)
[2018-10-16] MEDS: NACL 0.9% 1,000 ML IV SCH (20:17)
[2018-10-16] MEDS: PIPERACILLIN/TAZO 3.375/DEX-IS 50 ML IV SCH (20:18)
[2018-10-16] MEDS: LORazepam 2 MG/ML VIAL IVP PRN (20:21)
[2018-10-16] MEDS: LACOSAMIDE 100 MG TABLET PO SCH (22:44)
[2018-10-16] MEDS ORDERED: LACOSAMIDE 100 MG TABLET ONE (22:53)
[2018-10-16] MEDS ORDERED: HYDROcodone/ACETAMIN 10-325 MG TAB PO PRN (23:30)
[2018-10-16] MEDS ORDERED: HYDROcodone/ACETAMIN 10-325 MG TAB ONE (23:50)
[2018-10-17] MEDS: MORPHINE 2 MG/ML INJ. SYRINGE IVP PRN ×3 (00:51→09:49)
[2018-10-17] MEDS: LORazepam 2 MG/ML VIAL IVP PRN (01:42)
[2018-10-17] MEDS: PIPERACILLIN/TAZO 3.375/DEX-IS 50 ML IV SCH ×3 (01:45→14:46)
[2018-10-17 01:51] VITALS: BP_SYST 116
[2018-10-17] MEDS: NACL 0.9% 1,000 ML IV SCH ×2 (03:36→08:34)
[2018-10-17 06:23] LABS: HEMATOCRIT 39.4 % (36-54); HEMOGLOBIN 13.3 g/dL (14.0-18.0); MEAN CORPUSCULAR HEMOGLOBIN 31 pg (27-31); MEAN CORPUSCULAR HGB CONC 34 % (32-36); MEAN CORPUSCULAR VOLUME 92 fL (79.0-98.0); PLATELET COUNT (AUTO) 380 K/uL (130-430); RED BLOOD CELL COUNT(AUTO) 4.29 MIL/uL (4.2-6.2); RED CELL DISTRIBUTION WIDTH 14.2 % (9.0-15.0)
[2018-10-17 06:57] LABS: WHITE BLOOD COUNT (AUTO) 22.4 K/uL (4.8-10.8)
[2018-10-17 07:19] LABS: CALCIUM 8.8 mg/dL (8.4-11.0); CREATININE 1.05 mg/dL (0.55-1.30); POTASSIUM 3.5 mmol/L (3.5-5.1)
[2018-10-17 07:42] LABS: ALBUMIN 3.3 g/dL (3.4-4.8); TOTAL BILIRUBIN 0.5 mg/dL (0.0-1.0)
[2018-10-17 07:55] VITALS: BP_SYST 115
[2018-10-17] MEDS: LACOSAMIDE 100 MG TABLET PO SCH (08:34)
[2018-10-17] MEDS: LamoTRIgine 100 MG TABLET PO SCH (08:35)
[2018-10-17 09:21] LABS: ATYPICAL LYMPHOCYTES % 0 % (0-0); BAND % (MANUAL) 3 % (0-6); BASOPHILS % (MANUAL) 0 % (0-2); EOSINOPHILS % (MANUAL) 0 % (0-7); LYMPHOCYTES % (MANUAL) 16 % (20-46); MONOCYTES % (MANUAL) 8 % (0-11)
[2018-10-17 12:02] VITALS: BP_SYST 120
[2018-10-17 16:25] VITALS: BP_SYST 121
== END 2018-10-17 16:45 | disposition left against medical advice (07) | DRG 53 ==
LOC: SED 15:08 → STU 17:36
PROVIDERS: ADMIT Internal Medicine; ATTEND Internal Medicine
DX: G40.909 Epilepsy, unspecified, not intractable, without status epilepticus (principal); F12.10 Cannabis abuse, uncomplicated; G89.4 Chronic pain syndrome; K27.9 Peptic ulcer, site unspecified, unspecified as acute or chronic, without hemorrhage or perforation; N28.9 Disorder of kidney and ureter, unspecified; W18.39XA Other fall on same level, initial encounter; Z79.899 Other long term (current) drug therapy; Z90.81 Acquired absence of spleen; Y93.89 Activity, other specified; Y92.091 Bathroom in other non-institutional residence as the place of occurrence of the external cause; Y99.8 Other external cause status
CPT/HCPCS: 36415; 70450-TC; 71045; 80053; 80307; 85007; 85025; 85027; 87040-TC; 95816; 96374; 96375; 99285; G0378; J1885; J2060; J2270; J2543; J7030; J7060

== ENCOUNTER 2019-01-07 15:50 | Emergency (ER) | payer MEDICAID ==
[~2019-01-07] VITALS: Ht 188 cm; Wt 72.6 kg
[2019-01-07 15:50] VITALS: BP_SYST 150
[~2019-01-07 15:50] MED LIST changes: +VITD400 PO
--- NOTE | 2019-01-07 15:50 | NUR ---
TRIAGED AT BEDSIDE. PLACED IN BED 1
[2019-01-07] MEDS ORDERED: NACL 0.9% 1,000 ML IV ONE ×2 (15:54→16:00)
[2019-01-07] MEDS ORDERED: ACETAMINOPHEN 500 MG TABLET PO ONE (16:00)
[2019-01-07] MEDS ORDERED: LORazepam 2 MG/ML VIAL (FOR ER USE) IVP ONE (16:00)
[2019-01-07] MEDS ORDERED: ONDANSETRON HCL 4 MG/2 ML VIAL IVP ONE (16:00)
--- NOTE | 2019-01-07 16:00 | NUR ---
Patient arrived via EMS for c/c of seizure. Patient states seizure was witnessed by family. He states he forgot to take his medications, missed dose. He normally takes lamictal and vimpat, although he has breakthrough seizures. His last seizure was on 12/18/18. Patient calm, cooperative, alert. Non postictal. Patient placed on seizure precautions, pvc monitor.
--- NOTE | 2019-01-07 16:02 | NUR ---
ER at bedside examining patient.
[2019-01-07] MEDS ORDERED: LamoTRIgine 100 MG TABLET PO SCH (16:15)
[2019-01-07] MEDS ORDERED: LamoTRIgine 100 MG TABLET PO ONE (16:15)
[2019-01-07 16:19] LABS: BASOPHILS % (AUTO) 0.1 % (0.0-2.0); EOSINOPHILS # (AUTO) 0.4 K/uL (0.0-0.4); EOSINOPHILS % (AUTO) 3.7 % (0.0-4.0); HEMATOCRIT 42.8 % (36-54); HEMOGLOBIN 14.9 g/dL (14.0-18.0); LYMPHOCYTES # (AUTO) 3.1 K/uL (1.0-5.5); LYMPHOCYTES % (AUTO) 29.9 % (20.5-51.5); MEAN CORPUSCULAR HEMOGLOBIN 32 pg (27-31); MEAN CORPUSCULAR HGB CONC 35 % (32-36); MEAN CORPUSCULAR VOLUME 93 fL (79.0-98.0); MONOCYTES # (AUTO) 0.8 K/uL (0.0-1.0); MONOCYTES % (AUTO) 7.4 % (1.7-9.3); NEUTROPHILS # (AUTO) 6.2 K/uL (1.8-7.7); NEUTROPHILS % (AUTO) 58.9 % (40.0-70.0); PLATELET COUNT (AUTO) 360 K/uL (130-430); RED BLOOD CELL COUNT(AUTO) 4.62 MIL/uL (4.2-6.2); RED CELL DISTRIBUTION WIDTH 13.6 % (9.0-15.0); WHITE BLOOD COUNT (AUTO) 10.5 K/uL (4.8-10.8)
[2019-01-07 16:34] LABS: CALCIUM 9.3 mg/dL (8.4-11.0); CREATININE 1.04 mg/dL (0.55-1.30); POTASSIUM 3.5 mmol/L (3.5-5.1)
[2019-01-07 16:39] LABS: TOTAL BILIRUBIN 0.4 mg/dL (0.0-1.0)
--- NOTE | 2019-01-07 16:43 | NUR ---
Patient given medications as ordered. Informed by patient in addition to the lamictal, he does take Vimpat as well, MD aware, no new orders given.
[2019-01-07 16:51] LABS: INR 0.9 (0.80-1.20); PROTHROMBIN TIME 9.7 SECS (9.5-12.5)
--- NOTE | 2019-01-07 17:23 | NUR ---
Patient given written and verbal discharge instructions and verbalizes understanding. ER MD discussed with patient the results and treatment provided. Patient in stable condition. ID arm band removed. IV catheter removed intact and dressing applied, no active bleeding. No Rx given. Patient educated on pain management and to follow up with PMD. Pain Scale 0/10. Opportunity for questions provided and answered. Medication side effect fact sheet provided. No active seizure while here in ED.
[2019-01-07 17:25] VITALS: BP_SYST 144
== END 2019-01-07 17:23 | disposition home or self-care (01) ==
LOC: SED 15:50
DX: G40.89 Other seizures (principal); Z91.14 Patient's other noncompliance with medication regimen; Z79.899 Other long term (current) drug therapy
CPT/HCPCS: 36415; 70450-TC; 80053; 82150-TC; 83690-TC; 85025; 85610-TC; 85730-TC; 96374; 99284; J2405

== ENCOUNTER 2019-03-31 18:38 | Emergency (ER) | payer SELFPAY ==
[~2019-03-31] VITALS: Ht 188 cm; Wt 72.6 kg
[2019-03-31 20:02] VITALS: BP_SYST 126
[2019-03-31] MEDS ORDERED: LACOSAMIDE 100 MG TABLET PO SCH (20:45)
[2019-03-31] MEDS ORDERED: LACOSAMIDE 100 MG TABLET ONE (21:00)
[2019-03-31 22:00] VITALS: BP_SYST 123
== END 2019-03-31 22:00 | disposition home or self-care (01) ==
LOC: SED 18:38
DX: G40.89 Other seizures (principal); F41.9 Anxiety disorder, unspecified; Z76.0 Encounter for issue of repeat prescription; Z90.49 Acquired absence of other specified parts of digestive tract; Z79.899 Other long term (current) drug therapy
CPT/HCPCS: 99283

== ENCOUNTER 2019-04-06 15:37 | Inpatient (IN) | payer MEDICAID ==
[2019-04-05 20:30] VITALS: BP_SYST 125
[~2019-04-06] VITALS: Ht 177.8 cm; Wt 79.4 kg
[2019-04-06] MEDS ORDERED: LORazepam 2 MG/ML VIAL ONE ×2 (16:02→16:05)
[2019-04-06 16:04] VITALS: BP_SYST 112
[2019-04-06] MEDS ORDERED: KETAMINE HCL 500 MG/10 ML VIAL ONE (16:06)
[2019-04-06] MEDS ORDERED: FLUMAZENIL 0.1 MG/ML IVP ONE (16:07)
[2019-04-06] MEDS ORDERED: ED NON STOCK ORDER 1 EA MISC IM ONE ×2 (16:15→17:45)
[2019-04-06 16:39] LABS: BARBITURATE, URINE NEGATIVE (NEG <=200); BENZODIAZEPINE, URINE NEGATIVE (NEG <=150); CANNABINOID, URINE POSITIVE (NEG <=50); COCAINE, URINE NEGATIVE (NEG <=150); METHAMPHETAMINES SCREEN,URINE NEGATIVE (NEG <=500); OPIATE, URINE POSITIVE (NEG <=100); PHENCYCLIDINE SCREEN,URINE NEGATIVE (NEG <=25); UR TRICYCLIC ANTIDEPRESSANTS NEGATIVE (NEG <=300); URINE AMPHETAMINE NEGATIVE (NEG <=500); URINE METHADONE NEGATIVE (NEG <=200); URINE OXYCODONE SCREEN NEGATIVE (NEG <=100); URINE PROPOXYPHENE SCREEN NEGATIVE (NEG <=300)
[2019-04-06 16:42] LABS: BASOPHILS # (AUTO) 0.2 K/uL (0.0-0.2); EOSINOPHILS # (AUTO) 0.5 K/uL (0.0-0.4); EOSINOPHILS % (AUTO) 2.4 % (0.0-4.0); HEMATOCRIT 45.3 % (36-54); HEMOGLOBIN 15.3 g/dL (14.0-18.0); LYMPHOCYTES # (AUTO) 4.2 K/uL (1.0-5.5); LYMPHOCYTES % (AUTO) 21.2 % (20.5-51.5); MEAN CORPUSCULAR HEMOGLOBIN 32 pg (27-31); MEAN CORPUSCULAR HGB CONC 34 % (32-36); MEAN CORPUSCULAR VOLUME 96 fL (79.0-98.0); MONOCYTES # (AUTO) 0.9 K/uL (0.0-1.0); MONOCYTES % (AUTO) 4.5 % (1.7-9.3); NEUTROPHILS # (AUTO) 13.9 K/uL (1.8-7.7); NEUTROPHILS % (AUTO) 70.9 % (40.0-70.0); PLATELET COUNT (AUTO) 379 K/uL (130-430); RED BLOOD CELL COUNT(AUTO) 4.72 MIL/uL (4.2-6.2); RED CELL DISTRIBUTION WIDTH 14.4 % (9.0-15.0); WHITE BLOOD COUNT (AUTO) 19.6 K/uL (4.8-10.8)
[2019-04-06 16:50] LABS: ANION GAP 22 (5-15); CHLORIDE 101 mmol/L (98-107); CREATININE 1.66 mg/dL (0.55-1.30); GLUCOSE 187 mg/dL (70-99); POTASSIUM 3.4 mmol/L (3.5-5.1); SODIUM SERUM 137 mmol/L (136-145); UREA NITROGEN, BLOOD 16 mg/dL (8-21)
[2019-04-06 16:56] LABS: ALANINE AMINOTRANSFERASE 27 U/L (12-78); ALBUMIN 4.6 g/dL (3.4-4.8); ASPARTATE AMINOTRANSFERASE 19 U/L (10-37); TOTAL BILIRUBIN 0.3 mg/dL (0.0-1.0); VALPROIC ACID < 3 ug/mL (50-100)
[2019-04-06] MEDS ORDERED: levETIRAcetam 1,000 MG IV BAG 100 ML IV ONE (17:00)
[2019-04-06] MEDS ORDERED: LORazepam 2 MG/ML VIAL IVP ONE ×2 (17:00→17:45)
[2019-04-06 17:04] LABS: GFR AFRICAN AMERICAN 61 mL/min (>90)
[2019-04-06 17:05] LABS: PHENYTOIN (DILANTIN) < 0.5 ug/mL (10.0-20.0)
[2019-04-06 17:07] LABS: CARBAMAZEPINE (TEGRETOL) < 0 ug/mL (4-12)
[2019-04-06] MEDS ORDERED: fentaNYL CITRATE/PF 100 MCG/2 ML AMP IVP ONE ×2 (17:15→19:30)
[2019-04-06] MEDS ORDERED: fentaNYL CITRATE/PF 100 MCG/2 ML AMP ONE ×2 (17:28→19:33)
[2019-04-06] MEDS ORDERED: LORazepam 2 MG/ML VIAL IM ONE (17:45)
[2019-04-06] MEDS ORDERED: ONDANSETRON HCL 4 MG/2 ML VIAL IVP PRN (18:15)
[2019-04-06] MEDS ORDERED: LORazepam 2 MG/ML VIAL IVP PRN ×2 (18:15)
[2019-04-06] MEDS ORDERED: MORPHINE 2 MG/ML INJ. SYRINGE IVP PRN (18:15)
[2019-04-06] MEDS ORDERED: ACETAMINOPHEN 325 MG TABLET PO PRN (18:15)
[2019-04-06] MEDS ORDERED: ALBUTEROL SULFATE 0.083% 2.5 MG/3 ML VIAL.NEB INH PRN (18:15)
[2019-04-06 20:17] VITALS: BP_SYST 125
[2019-04-06 20:30] VITALS: BP_SYST 136
[2019-04-06 21:00] VITALS: BP_SYST 122
[2019-04-06] MEDS: LamoTRIgine 100 MG TABLET PO SCH (21:26)
[2019-04-06] MEDS: LACOSAMIDE 100 MG TABLET PO SCH (21:26)
[2019-04-06] MEDS ORDERED: PIPERACILLIN/TAZOBACTAM 3.375 GM/VIAL (ZOSYN) IV ONE (21:47)
[2019-04-06] MEDS ORDERED: MAGNESIUM SULFATE 1 GM/2 ML VIAL ONE (21:51)
[2019-04-06] MEDS ORDERED: FOLIC ACID 5 MG/ML VIAL IV ONE (21:51)
[2019-04-06] MEDS ORDERED: MVI 10 ML VIAL IV ONE ×2 (21:51→21:54)
[2019-04-06] MEDS ORDERED: THIAMINE HCL 100 MG/ML VIAL ONE (21:51)
[2019-04-06 22:00] VITALS: BP_SYST 107
[2019-04-06] MEDS ORDERED: FOLIC ACID 1 MG, THIAMINE HCL 100 MG, MAGNESIUM SULFATE 1 GM, MVI 10 ML in NACL 0.9% 1,... IV ONE (22:00)
[2019-04-06 23:00] VITALS: BP_SYST 122
[2019-04-06] MEDS: PIPERACILLIN/TAZO 3.375/DEX-IS 50 ML IV SCH (23:02)
[2019-04-07] VITALS (16 sets, daily range): BP systolic 99–128
[2019-04-07 01:16] LABS: BILIRUBIN,URINE NEGATIVE (NEGATIVE); BLOOD, URINE 2+ (NEGATIVE); CLARITY/URINE CLEAR (CLEAR); COLOR,URINE YELLOW (YELLOW); GLUCOSE,URINE NEGATIVE (NEGATIVE); KETONES,URINE TRACE (NEGATIVE); LEUKOCYTE ESTERASE ,URINE NEGATIVE (NEGATIVE); NITRITE, URINE NEGATIVE (NEGATIVE); PH,URINE 5.5 (5.0-8.0); PROTEIN URINE 1+ (NEGATIVE); UROBILINOGEN,URINE 0.2 (0.2-1.0)
[2019-04-07 01:38] LABS: BACTERIA,URINE FEW /HPF (None Seen); WBC,URINE 0-3 /HPF (0-3)
[2019-04-07 01:39] LABS: HYALINE CASTS, URINE 0-10 /LPF (None Seen)
[2019-04-07] MEDS ORDERED: MORPHINE 4 MG/ML INJ. SYRINGE IVP ONE (04:30)
[2019-04-07] MEDS ORDERED: HYDROcodone/ACETAMIN 10-325 MG TAB PO PRN (04:45)
[2019-04-07] MEDS: PIPERACILLIN/TAZO 3.375/DEX-IS 50 ML IV SCH ×2 (05:12→12:00)
[2019-04-07 05:45] LABS: BASOPHILS # (AUTO) 0.1 K/uL (0.0-0.2); BASOPHILS % (AUTO) 0.5 % (0.0-2.0); HEMATOCRIT 39.5 % (36-54); HEMOGLOBIN 13.9 g/dL (14.0-18.0); LYMPHOCYTES # (AUTO) 1.9 K/uL (1.0-5.5); LYMPHOCYTES % (AUTO) 7.7 % (20.5-51.5); MEAN CORPUSCULAR HEMOGLOBIN 32 pg (27-31); MEAN CORPUSCULAR HGB CONC 35 % (32-36); MEAN CORPUSCULAR VOLUME 92 fL (79.0-98.0); MONOCYTES # (AUTO) 2.3 K/uL (0.0-1.0); MONOCYTES % (AUTO) 9.4 % (1.7-9.3); NEUTROPHILS # (AUTO) 20.2 K/uL (1.8-7.7); NEUTROPHILS % (AUTO) 82.4 % (40.0-70.0); PLATELET COUNT (AUTO) 350 K/uL (130-430); RED BLOOD CELL COUNT(AUTO) 4.32 MIL/uL (4.2-6.2); RED CELL DISTRIBUTION WIDTH 14.1 % (9.0-15.0); WHITE BLOOD COUNT (AUTO) 24.5 K/uL (4.8-10.8)
[2019-04-07] MEDS ORDERED: levETIRAcetam 1,000 MG in NS 100 ML IV SCH (06:00)
[2019-04-07 06:18] LABS: CREATININE 1.52 mg/dL (0.55-1.30); POTASSIUM 3.7 mmol/L (3.5-5.1); TOTAL BILIRUBIN 0.5 mg/dL (0.0-1.0)
[2019-04-07] MEDS: LACOSAMIDE 100 MG TABLET PO SCH (08:20)
[2019-04-07] MEDS ORDERED: LamoTRIgine 25 MG TABLET PO SCH (09:00)
[2019-04-07] MEDS ORDERED: LamoTRIgine 100 MG TABLET PO SCH (09:00)
[2019-04-07] MEDS: LamoTRIgine 100 MG TABLET PO SCH (09:42)
[2019-04-08 10:07] LABS: HEPATITIS B CORE AB, TOTAL Negative (Negative); HEPATITIS B SURFACE AG Negative (Negative); HEPATITIS C VIRUS AB <0.1 s/co ratio (0.0-0.9)
== END 2019-04-07 16:10 | disposition left against medical advice (07) | DRG 53 ==
LOC: SED 15:37 → SIC 18:11
PROVIDERS: ADMIT Internal Medicine Hospice and Palliative Medicine; ATTEND Internal Medicine Hospice and Palliative Medicine
DX: R56.9 Unspecified convulsions (principal); G93.40 Encephalopathy, unspecified; E87.2 Acidosis; R65.10 Systemic inflammatory response syndrome (SIRS) of non-infectious origin without acute organ dysfunction; N19 Unspecified kidney failure; D72.829 Elevated white blood cell count, unspecified; E87.6 Hypokalemia; Z90.81 Acquired absence of spleen; Z91.19 Patient's noncompliance with other medical treatment and regimen
CPT/HCPCS: 36415; 70450-TC; 80053; 80156-TC; 80164-TC; 80185-TC; 80307; 81000-TC; 82962; 83605; 85025; 86704; 86706; 86803; 87040-TC; 87081; 87086; 87340; 87536; 96365; 96372; 96375; 96376; 99291; J1953; J2060; J2270; J2543; J3010; J3411; J3475; J3490; J7030; J7060

== ENCOUNTER 2019-04-10 11:55 | Emergency (ER) | payer MEDICAID ==
[~2019-04-10] VITALS: Ht 193 cm; Wt 90.7 kg
[2019-04-10 12:01] VITALS: BP_SYST 119
[2019-04-10] MEDS ORDERED: MECLIZINE HCL 25 MG TABLET (ANITVERT) PO ONE (13:15)
[2019-04-10 13:36] LABS: CALCIUM 9.2 mg/dL (8.4-11.0); CREATININE 1.14 mg/dL (0.55-1.30); POTASSIUM 3.4 mmol/L (3.5-5.1)
[2019-04-10 13:42] LABS: ALBUMIN 3.9 g/dL (3.4-4.8); TOTAL BILIRUBIN 0.4 mg/dL (0.0-1.0)
[2019-04-10 14:12] VITALS: BP_SYST 119
== END 2019-04-10 14:12 | disposition home or self-care (01) ==
LOC: SED 11:55
DX: R42 Dizziness and giddiness (principal); F41.9 Anxiety disorder, unspecified; Z79.899 Other long term (current) drug therapy
CPT/HCPCS: 36415; 80053; 99283; J8597

== ENCOUNTER 2019-05-26 17:06 | Emergency (ER) | payer MEDICAID ==
[~2019-05-26] VITALS: Ht 193 cm; Wt 90.7 kg
[2019-05-26 17:42] VITALS: BP_SYST 131
--- NOTE | 2019-05-26 19:23 | NUR ---
Patient to ER bed 08 to gown for evaluation. Side rails up.
--- NOTE | 2019-05-26 19:25 | NUR ---
Pt brought by self, A&Ox4, ambulatory, pt states he had a seizure at 1500 today, c/o mild headache, skin pink and warm, cap refill <3, VSS, respirations even and unlabored.
--- NOTE | 2019-05-26 19:32 | NUR ---
Dr Meraz at bedside examining patient
[2019-05-26 20:00] LABS: BASOPHILS # (AUTO) 0.1 K/uL (0.0-0.2); BASOPHILS % (AUTO) 0.5 % (0.0-2.0); HEMATOCRIT 43.2 % (36-54); HEMOGLOBIN 14.6 g/dL (14.0-18.0); LYMPHOCYTES # (AUTO) 1.3 K/uL (1.0-5.5); LYMPHOCYTES % (AUTO) 9.2 % (20.5-51.5); MEAN CORPUSCULAR HEMOGLOBIN 32 pg (27-31); MEAN CORPUSCULAR HGB CONC 34 % (32-36); MEAN CORPUSCULAR VOLUME 94 fL (79.0-98.0); MONOCYTES # (AUTO) 0.6 K/uL (0.0-1.0); MONOCYTES % (AUTO) 4.1 % (1.7-9.3); NEUTROPHILS % (AUTO) 86.2 % (40.0-70.0); PLATELET COUNT (AUTO) 401 K/uL (130-430); RED BLOOD CELL COUNT(AUTO) 4.61 MIL/uL (4.2-6.2); RED CELL DISTRIBUTION WIDTH 14.3 % (9.0-15.0)
[2019-05-26] MEDS ORDERED: ONDANSETRON HCL 4 MG/2 ML VIAL IVP ONE (20:00)
[2019-05-26] MEDS ORDERED: MORPHINE 2 MG/ML INJ. SYRINGE IVP ONE ×2 (20:00→21:15)
[2019-05-26] MEDS ORDERED: NACL 0.9% 1,000 ML IV ONE (20:00)
[2019-05-26 20:16] LABS: CALCIUM 9.3 mg/dL (8.4-11.0); CREATININE 1.02 mg/dL (0.55-1.30)
[2019-05-26 20:20] LABS: ALBUMIN 4.4 g/dL (3.4-4.8); TOTAL BILIRUBIN 0.4 mg/dL (0.0-1.0)
--- NOTE | 2019-05-26 20:20 | NUR ---
Pt A&Ox4, VSS, respirations even and unlabored, cap refill <3.
[2019-05-26] MEDS ORDERED: LORazepam 2 MG/ML VIAL IVP ONE (21:15)
[2019-05-26 22:20] VITALS: BP_SYST 125
== END 2019-05-26 22:20 | disposition home or self-care (01) ==
LOC: SED 17:06
DX: R56.9 Unspecified convulsions (principal); R11.10 Vomiting, unspecified; F41.9 Anxiety disorder, unspecified; Z79.899 Other long term (current) drug therapy
CPT/HCPCS: 36415; 70450; 80053; 85025; 96361; 96374; 96375; 96376; 99284; J2060; J2270; J2405; J7030

== ENCOUNTER 2019-09-01 23:11 | Emergency (ER) | payer MEDICAID ==
[~2019-09-01] VITALS: Ht 193 cm; Wt 95.3 kg
[2019-09-01 23:17] VITALS: BP_SYST 120
[2019-09-01] MEDS ORDERED: ACETAMINOPHEN 500 MG TABLET PO ONE (23:45)
[2019-09-02] MEDS ORDERED: KETOROLAC TROMETHAMINE 60 MG/2 ML VIAL IM ONE
[2019-09-02 00:31] LABS: BILIRUBIN,URINE NEGATIVE (NEGATIVE); CLARITY/URINE CLEAR (CLEAR); COLOR,URINE YELLOW (YELLOW); GLUCOSE,URINE NEGATIVE (NEGATIVE); KETONES,URINE 1+ (NEGATIVE); LEUKOCYTE ESTERASE ,URINE NEGATIVE (NEGATIVE); NITRITE, URINE NEGATIVE (NEGATIVE); PROTEIN URINE 2+ (NEGATIVE); UROBILINOGEN,URINE 0.2 (0.2-1.0)
[2019-09-02 00:38] LABS: BLOOD, URINE TRACE (NEGATIVE)
[2019-09-02 00:45] LABS: BARBITURATE, URINE NEGATIVE (NEG <=200); BENZODIAZEPINE, URINE NEGATIVE (NEG <=150); COCAINE, URINE NEGATIVE (NEG <=150); METHAMPHETAMINES SCREEN,URINE NEGATIVE (NEG <=500); OPIATE, URINE POSITIVE (NEG <=100); URINE AMPHETAMINE NEGATIVE (NEG <=500); URINE METHADONE NEGATIVE (NEG <=200)
[2019-09-02 00:46] LABS: ANION GAP 15 (5-15); CALCIUM 8.9 mg/dL (8.4-11.0); CHLORIDE 102 mmol/L (98-107); CREATININE 1.83 mg/dL (0.55-1.30); GLUCOSE 112 mg/dL (70-99); POTASSIUM 3.5 mmol/L (3.5-5.1); SODIUM SERUM 137 mmol/L (136-145); UREA NITROGEN, BLOOD 19 mg/dL (8-21)
[2019-09-02 00:46] LABS: CANNABINOID, URINE POSITIVE (NEG <=50); PHENCYCLIDINE SCREEN,URINE NEGATIVE (NEG <=25); UR TRICYCLIC ANTIDEPRESSANTS NEGATIVE (NEG <=300); URINE OXYCODONE SCREEN NEGATIVE (NEG <=100); URINE PROPOXYPHENE SCREEN NEGATIVE (NEG <=300)
[2019-09-02 00:48] LABS: GFR AFRICAN AMERICAN 54 mL/min (>90)
[2019-09-02 00:52] LABS: ALANINE AMINOTRANSFERASE 22 U/L (12-78); ALBUMIN 4.1 g/dL (3.4-4.8); ASPARTATE AMINOTRANSFERASE 18 U/L (10-37); TOTAL BILIRUBIN 0.5 mg/dL (0.0-1.0)
[2019-09-02 00:55] LABS: ALCOHOL, BLOOD < 3 mg/dL (<10)
[2019-09-02 00:58] LABS: HEMATOCRIT 42.3 % (36-54); HEMOGLOBIN 14.3 g/dL (14.0-18.0); MEAN CORPUSCULAR HEMOGLOBIN 32 pg (27-31); MEAN CORPUSCULAR HGB CONC 34 % (32-36); MEAN CORPUSCULAR VOLUME 94 fL (79.0-98.0); PLATELET COUNT (AUTO) 340 K/uL (130-430); RED BLOOD CELL COUNT(AUTO) 4.49 MIL/uL (4.2-6.2); RED CELL DISTRIBUTION WIDTH 13.5 % (9.0-15.0); WHITE BLOOD COUNT (AUTO) 23.1 K/uL (4.8-10.8)
[2019-09-02 01:04] LABS: BACTERIA,URINE FEW /HPF (None Seen); WBC,URINE 0-3 /HPF (0-3)
[2019-09-02 01:18] LABS: BAND % (MANUAL) 2 % (0-6); BASOPHILS % (MANUAL) 0 % (0-2); EOSINOPHILS % (MANUAL) 0 % (0-7); LYMPHOCYTES % (MANUAL) 10 % (20-46); MONOCYTES % (MANUAL) 7 % (0-11)
[2019-09-02 01:34] VITALS: BP_SYST 116
== END 2019-09-02 01:34 | disposition home or self-care (01) ==
LOC: SED 23:11
DX: G40.909 Epilepsy, unspecified, not intractable, without status epilepticus (principal); F41.9 Anxiety disorder, unspecified; Z79.899 Other long term (current) drug therapy
CPT/HCPCS: 36415; 80053; 80307; 81000; 85007; 85027; 96372; 99283; G0482; J1885

== ENCOUNTER 2020-07-23 16:20 | Emergency (ER) | payer MEDICAID ==
[~2020-07-23] VITALS: Ht 193 cm; Wt 93.0 kg
[2020-07-23 16:20] VITALS: BP_SYST 134
[2020-07-23] MEDS ORDERED: MORPHINE 2 MG/ML INJ. SYRINGE IVP ONE (17:30)
[2020-07-23] MEDS ORDERED: NACL 0.9% 1,000 ML IV ONE (17:30)
[2020-07-23] MEDS ORDERED: DEXAMETHASONE SOD PHOSPHATE 10 MG/ML VIAL IVP ONE (17:30)
[2020-07-23] MEDS ORDERED: PRED50TA PO (18:44)
[2020-07-23] MEDS ORDERED: METH-364 PO (18:44)
[2020-07-23 19:00] VITALS: BP_SYST 116
== END 2020-07-23 19:00 | disposition home or self-care (01) ==
LOC: SED 16:20
DX: M54.12 Radiculopathy, cervical region (principal); F41.9 Anxiety disorder, unspecified; G40.909 Epilepsy, unspecified, not intractable, without status epilepticus; Z79.899 Other long term (current) drug therapy
CPT/HCPCS: 72125; 76376; 96361; 96374; 96375; 99284; J1100; J2270; J7030

== ENCOUNTER 2020-07-31 13:21 | Emergency (ER) | payer MEDICAID ==
[~2020-07-31] VITALS: Ht 193 cm; Wt 95.3 kg
[2020-07-31 13:21] VITALS: BP_SYST 111
[~2020-07-31 13:21] MED LIST changes: +METH-364 PO; +PRED50TA PO
[2020-07-31] MEDS ORDERED: MORPHINE SULFATE 10 MG/ML VIAL IM ONE (14:45)
[2020-07-31] MEDS ORDERED: DIPHENHYDRAMINE INJ 50 MG/ML VIAL IM ONE (14:45)
[2020-07-31 15:36] VITALS: BP_SYST 111
== END 2020-07-31 15:38 | disposition home or self-care (01) ==
LOC: SED 13:21
DX: G54.2 Cervical root disorders, not elsewhere classified (principal)
CPT/HCPCS: 96372; 99284; J1200; J2270